=== PATIENT | female | born 1985 | race Caucasian/White ===

== ENCOUNTER 2017-05-17 15:52 | Emergency (ER) | payer OTHER ==
[2017-05-17] MEDS ORDERED: HYDROcodone/ACETAMIN 5-325 MG* 1 TAB PO ONE (16:37)
--- NOTE | 2017-05-17 18:32 | ED ---
Throat Pain/Nasal Congestion - HPI Summary HPI Summary: Pt here w/ acute Lt ear pain. Started last night and woke her from sleep. Went to and received ciprodex for OE (?). Was told she has blisters in her ear and could be shingles but she states she never had chix pox, received vaccine and has had been checked multiple times for antibodies w/o success. She denies h /o HSV as well as she's been checked prior to pregnancies. Pain is worse when she opens her jaw. Denies scalp, eye, face pain and no fever, chills, N/V/D, neck pain, otorrhea, trouble breathing or swallowing. She has applied the drops provided once already and took ibuprofen 600mg but pain persists. - History of Current Complaint Chief Complaint: EDEarPain Time Seen by Provider: 05/17/17 17:35 Hx Obtained From: Patient - Allergies/Home Medications Allergies/Adverse Reactions: Allergies Allergy/AdvReac Type Severity Reaction Status Date / Time Amoxicillin Allergy Hives Verified 05/17/17 15:54 Penicillins Allergy Unknown Verified 05/17/17 15:54 Reaction Details PMH/Surg Hx/FS Hx/Imm Hx Previously Healthy: Yes Endocrine/Hematology History: Reports: Hx Thyroid Disease - HOSHIMOTOS HYPOTHYROID, Hx Anemia Denies: Hx Diabetes Cardiovascular History: Denies: Hx Hypertension History: Denies: Hx Renal Disease Psychiatric History: Reports: Hx Anxiety - severe - Immunization History Immunizations Up to Date: Yes Infectious Disease History: No Infectious Disease History: Denies: Hx of Known/Suspected MRSA, Traveled Outside the in Last 30 Days - Family History Known Family History: Positive: None - Social History Occupation: Employed Full-time Lives: With Family Alcohol Use: None Hx Substance Use: No Substance Use Type: Reports: None Hx Tobacco Use: Yes Smoking Status (MU): Former Smoker Type: Cigarettes Have You Smoked in the Last Year: No Review of Systems Constitutional: Negative Eyes: Negative ENT: Other - see HPI Negative: Nasal Discharge Cardiovascular: Negative Respiratory: Negative Gastrointestinal: Negative Positive: no symptoms reported Musculoskeletal: Negative Skin: Negative Neurological: Negative Psychological: Normal - concerned but calm and cooperative All Other Systems Reviewed And Are Negative: Yes Physical Exam Triage Information Reviewed: Yes Vital Signs On Initial Exam: Initial Vitals Temp Pulse Resp BP Pulse Ox 99.2 F 114 20 136/97 100 05/17/17 15:54 05/17/17 15:54 05/17/17 15:54 05/17/17 15:54 05/17/17 15:54 Vital Signs Reviewed: Yes Appearance: Positive: Well-Appearing, No Pain Distress - pt had received norco prior to my evaluation Skin: Positive: Warm, Dry - no lesions, no rash Head/Face: Positive: Normal Head/Face Inspection - no rash/lesions along face or scalp - NTTP Eyes: Positive: Normal - no corneal ulcers, lesions, vesicles, EOMI, XOCHITL, Conjunctiva Clear. Negative: Conjunctiva Inflammed, Discharge ENT: Positive: Hearing grossly normal, Pharynx normal - no lesions, TMs normal - Lt anterior wall of EAC w/ 2-3 small vesicles/pustules w/ mild erythema - no otorrhea, no edema, no abrasions observed, no bleeding. Negative: Nasal congestion, Nasal drainage, Tonsillar swelling, Tonsillar exudate Neck: Positive: Supple, Nontender, No Lymphadenopathy Respiratory/Lung Sounds: Positive: Clear to Auscultation, Breath Sounds Present Cardiovascular: Positive: Normal, RRR Musculoskeletal: Positive: Normal, Strength/ROM Intact Neurological: Positive: Normal, Sensory/Motor Intact, Alert, Oriented to Person Place, Time, CN Intact II-III Psychiatric: Positive: Normal Diagnostics - Vital Signs Vital Signs Temp Pulse Resp BP Pulse Ox 05/17/17 16:05 99.9 F 104 20 124/85 99 05/17/17 15:54 99.2 F 114 20 136/97 100 - Laboratory Lab Statement: Any lab studies that have been ordered have been reviewed, and results considered in the medical decision making process. Re-Evaluation - Re-Evaluation First Eval Change: Improved - s/p norco EENT Course/Dx - Course Course Of Treatment: Pt here w/ persistent Lt sided ear pain. Vesicles present which were intially thought to be shingles however pt reports no h/o any herpes viruses (see HPI). She does admit to sleeping in a hammock the night before while camping w/o a head cover - could have sustained a bite and having reaction /MRSA infection. Added mupirocin to regimen. Advised to continue ciprodex as well and f/u w/ PCP for recheck in 3 days. Danger s/sx of when to return reviewed. - Diagnoses Provider Diagnoses: Otitis externa of left ear Discharge - Discharge Plan Condition: Stable Disposition: HOME Prescriptions: HYDROcodone/ACETAMIN 5-325 MG* [[place] 5-325 TAB*] 1 tab PO Q6H PRN #15 tab MDD 4 PRN Reason: Pain Mupirocin 2% OINT* [Bactroban 2 % Oint*] 1 applic TOPICAL TID #1 tube Patient Education Materials: Otitis Externa (ED) Forms: *Work Release Referrals: Erlin Mathur MD [Primary Care Provider] - Additional Instructions: Continue ciprodex drops as directed by urgent care provider Add mupirocin ointment as directed You may continue ibuprofen with food for pain and take norco for breakthrough pain Follow-up with your PCP in 3 days for recheck *If you develop more blisters along face, scalp or eye or pain in eye, return to ED [facility]
[2017-05-17 19:24] VITALS: BP 112/73
[2017-05-17] MEDS ORDERED: Mupirocin 2% OINT* TUBE TOPICAL SCH (21:00)
== END 2017-05-17 19:25 | disposition home or self-care (01) ==
LOC: ED 15:52
DX: H60.92 Unspecified otitis externa, left ear (principal); Z87.891 Personal history of nicotine dependence; Z88.0 Allergy status to penicillin; F41.9 Anxiety disorder, unspecified
CPT/HCPCS: 99281

== ENCOUNTER 2022-12-04 08:08 | Inpatient (IN) ==
[2022-12-04 09:27] LABS: Hematocrit 34 % (35-47); Hemoglobin 11.4 g/dL (12.0-16.0); Mean Corpuscular HGB Conc 33 g/dL (31-36); Mean Corpuscular Hemoglobin 29 pg (27-31); Mean Corpuscular Volume 87 fL (80-97); Mean Platelet Volume 8.6 fL (7.4-10.4); Platelet Count 222 10^3/uL (150-450); Red Blood Count 3.92 10^6 /uL (3.70-4.87); Red Cell Distribution Width 14 % (10-15); White Blood Count 11.3 10^3/uL (3.5-10.8)
[2022-12-04] MEDS ORDERED: Buffered Lidocaine 1% SYRIN 1 ml INTRADERM ONE (09:29)
[2022-12-04] MEDS ORDERED: Lactated Ringers 1000 ml BAG 1,000 ML IV ONE ×3 (09:29→17:53)
[2022-12-04] MEDS ORDERED: Oxytocin in LR 20,000 MILLI.UNIT/1,000 ML BAG IV SCH ×2 (09:30→18:30)
[2022-12-04] MEDS ORDERED: Lactated Ringers 1000 ml BAG 1,000 ML IV SCH ×4 (10:00→19:00)
[2022-12-04] MEDS ORDERED: Lidocaine 1.5% EPI 1:200,000 30 ML SDV ONE (13:13)
[2022-12-04] MEDS ORDERED: OBEPIDURAL (200 ML) 200 ML EPIDURAL ONE (13:42)
[2022-12-04] MEDS ORDERED: Sodium Citrate/Citric Acid LIQ 15 ML UDC PO PRN ×2 (13:49→17:53)
[2022-12-04] MEDS ORDERED: OBEPIDURAL (200 ML) 200 ML EPIDURAL SCH ×2 (14:00→18:00)
[2022-12-04] MEDS ORDERED: Lidocaine 2% w/ EPI 1:200,000 MPF 20 ML SDV VIAL ONE (17:06)
[2022-12-04] MEDS ORDERED: fentaNYL 100 mcg/2 ml 50 MCG/ML VIAL ONE (17:06)
[2022-12-04] MEDS ORDERED: Phenylephrine 40 mcg/mL 10mL (400mcg) SYRINGE IV PUSH PRN ×2 (17:53)
[2022-12-04] MEDS ORDERED: Dibucaine 1% OINT 28.35 GM TUBE PR PRN (18:26)
[2022-12-04] MEDS ORDERED: Glycerin ADULT 2.4 gm SUPP PR PRN (18:26)
[2022-12-04] MEDS ORDERED: Witch Hazel PAD JAR TOPICAL PRN (18:26)
[2022-12-05 07:36] LABS: ABS Basophils 0.1 10^3/ul (0-0.2); ABS Eosinophils 0.1 10^3/ul (0-0.6); ABS Lymphocytes 1.1 10^3/ul (1.0-4.8); ABS Monocytes 0.9 10^3/ul (0-0.8); ABS Neutrophils 11.3 10^3/ul (1.5-7.7); Eosinophil % 0.6 %; Hematocrit 29 % (35-47); Hemoglobin 9.9 g/dL (12.0-16.0); Mean Corpuscular HGB Conc 35 g/dL (31-36); Mean Corpuscular Hemoglobin 31 pg (27-31); Mean Corpuscular Volume 88 fL (80-97); Mean Platelet Volume 8.4 fL (7.4-10.4); Platelet Count 187 10^3/uL (150-450); Red Blood Count 3.26 10^6 /uL (3.70-4.87); Red Cell Distribution Width 14 % (10-15); White Blood Count 13.4 10^3/uL (3.5-10.8)
[2022-12-05 12:12] VITALS: BP 126/70
== END 2022-12-05 19:00 | disposition home or self-care (01) | DRG 560 ==
LOC: MCHOBOUT 08:08 → MCHOB 09:36
PROVIDERS: ADMIT Obstetrics & Gynecology; ATTEND Obstetrics & Gynecology